=== PATIENT | female | born 1990 | race Caucasian/White ===

== ENCOUNTER 2022-04-02 22:04 | Observation (INO) ==
[2022-04-02] MEDS ORDERED: Ondansetron ODT 4 mg TAB 4 MG TAB ONE (22:32)
[2022-04-02] MEDS ORDERED: Lactated Ringers 1000 ml BAG 1,000 ML IV ONE (22:34)
[2022-04-02] MEDS: Ondansetron ODT 4 mg TAB 4 MG TAB SL ONE ×2 (22:48→23:10)
[2022-04-02 23:06] LABS: ABS Monocytes 0.7 10^3/ul (0-0.8); ABS Neutrophils 13.7 10^3/ul (1.5-7.7); Eosinophil % 0.2 %; Hematocrit 49 % (35-47); Hemoglobin 16.4 g/dL (12.0-16.0); Lymphocyte % 6.4 %; Mean Corpuscular HGB Conc 33 g/dL (31-36); Mean Corpuscular Hemoglobin 29 pg (27-31); Mean Corpuscular Volume 85 fL (80-97); Mean Platelet Volume 8.2 fL (7.4-10.4); Nucleated Red Blood Cells % 0.1; Platelet Count 388 10^3/uL (150-450); Red Blood Count 5.75 10^6 /uL (3.70-4.87); Red Cell Distribution Width 14 % (10-15); White Blood Count 15.5 10^3/uL (3.5-10.8)
[2022-04-02 23:22] LABS: ALT 20 U/L (7-52); Albumin 5.3 g/dL (3.2-5.2); Albumin/Globulin Ratio 1.6 (1-3); Alkaline Phosphatase 71 U/L (35-149); Blood Urea Nitrogen 25 mg/dL (6-24); C Reactive Protein 17.96 mg/L (<8.01); CO2 Carbon Dioxide 21 mmol/L (22-32); Calcium 10.1 mg/dL (8.6-10.3); Chloride 102 mmol/L (101-111); Creatinine, Serum 1.05 mg/dL (0.51-0.95); Globulin 3.4 g/dL (2-4); Glucose 180 mg/dL (70-100); Lipase 24 U/L (11.0-82.0); Sodium 135 mmol/L (135-145); Total Protein 8.7 g/dL (6.4-8.9); eGFR CKD-EPI 71.5 (>60)
[2022-04-02 23:25] LABS: Anion Gap 12 mmol/L (2-11)
[2022-04-03] MEDS ORDERED: Ondansetron 4 mg VIAL 2 MG/ML 2 ml VIAL IV ONE (01:05)
[2022-04-03] MEDS ORDERED: Al Hydrox/Mg Hydrox/Simet LIQ 30 ML UDC PO ONE (01:32)
[2022-04-03] MEDS ORDERED: Lactated Ringers 1000 ml BAG 1,000 ML IV ONE (02:09)
[2022-04-03] MEDS ORDERED: Metoclopramide 5 MG/ML VIAL (10 mg) IV SLOW PU ONE (02:14)
[2022-04-03] MEDS ORDERED: Morphine 2 MG/ML SYRINGE IV PRN (02:14)
[2022-04-03] MEDS ORDERED: Iohexol 350 (CONTRAST) 500 ML MDV IV ONE (02:23)
[2022-04-03] MEDS ORDERED: Piperacillin/Tazobac ADVAN 3.375 GM in NS 0.9% 100 ml BAG 100 ML IV ONE (04:37)
[2022-04-03] MEDS ORDERED: Ondansetron 4 mg VIAL 2 MG/ML 2 ml VIAL IV PRN (05:42)
[2022-04-03] MEDS ORDERED: Zosyn per Pharmacy NOTE FOLLOW UP PRN (05:43)
[2022-04-03] MEDS ORDERED: NS 0.9% 1,000 ML IV SCH (05:45)
[2022-04-03] MEDS ORDERED: Zosyn 3.375 GM IV - ED ONCE IV ONE (06:00)
[2022-04-03] MEDS ORDERED: ZOSYN 3.375 GM Q8H per EXTENDED INFUSION IV SCH (09:00)
[2022-04-03 11:14] VITALS: BP 111/82
== END 2022-04-03 10:05 | disposition home or self-care (01) ==
LOC: EDHOLD 22:04 → ED 22:04 → EDHOLD 04-03 10:04
PROVIDERS: ADMIT Surgery; ATTEND Surgery